=== PATIENT | female | born 1990 | race Caucasian/White ===

== ENCOUNTER 2016-10-01 05:18 | Inpatient (IN) | payer BC ==
[2016-10-01] MEDS ORDERED: Sodium Chloride 0.9% 10 ML Syringe FLUSH PRN (05:34)
[2016-10-01] MEDS ORDERED: ceFAZolin 2 GM in Premix Bag 1 BAG IV ONE (05:34)
[2016-10-01] MEDS ORDERED: Sodium Chloride 0.9% 2.5 ML Syringe FLUSH PRN (05:34)
[2016-10-01] MEDS ORDERED: Citric Acid/Sodium Citrate Solution 30 ML Cup PO SCH (05:45)
[2016-10-01] MEDS: Lactated Ringers 1,000 ML IV SCH ×2 (06:50→07:20)
[2016-10-01] MEDS ORDERED: Propofol 200 MG/20 ML SDV ONE (07:21)
[2016-10-01] MEDS ORDERED: Morphine PF 10 MG/10 ML SDV ONE (07:22)
[2016-10-01] MEDS ORDERED: Ondansetron 4 MG/2 ML SDV ONE (07:23)
[2016-10-01] MEDS ORDERED: ePHEDrine 50 MG/ML SDV ONE (07:23)
[2016-10-01] MEDS ORDERED: Oxytocin 10 Units/1 ML SDV ONE (07:23)
[2016-10-01] MEDS ORDERED: Octyl 2-Cyanoacrylate 1 Tube ONE (08:39)
--- NOTE | 2016-10-01 08:49 | PCM.PREANE ---
Preanesthetic Assessment - Anesthesia/Transfusion/Family Hx Anesthesia History: Prior Anesthesia Without Reaction Family History of Anesthesia Reaction: No Transfusion History: No Prior Transfusion(s) Intubation History: Unknown - Review of Systems General: No Symptoms Pulmonary: No Symptoms Cardiovascular: No Symptoms, Other Gastrointestinal: No Symptoms Neurological: No Symptoms Other: Reports: None - Physical Assessment NPO Status Date: 10/01/16 () Height: 1.73 m Weight: 78.018 kg Mental Status: Alert & Oriented x3 Dentition: Reports: Normal Dentition Thyro-Mental Finger Breadths: 3 Mouth Opening Finger Breadths: 2 ROM/Head Extension: Full Lungs: Clear to Auscultation Cardiovascular: Regular Rate Other: having some pacs in the or pt said she wore a holter monitor 6 years ago - Lab Values: Laboratory Last Values WBC 6.91 K/uL (4.0-11.0) 10/01/16 05:41 RBC 3.80 M/uL (4.30-5.90) L 10/01/16 05:41 Hgb 11.1 g/dL (12.0-16.0) L 10/01/16 05:41 Hct 34.4 % (36.0-46.0) L 10/01/16 05:41 MCV 90.5 fL (80.0-98.0) 10/01/16 05:41 MCH 29.2 pg (27.0-32.0) 10/01/16 05:41 MCHC 32.3 g/dL (31.0-37.0) 10/01/16 05:41 RDW Std Deviation 43.2 fl (28.0-62.0) 10/01/16 05:41 RDW Coeff of Santos 13 % (11.0-15.0) 10/01/16 05:41 Plt Count 188 K/uL (150-400) 10/01/16 05:41 MPV 10.70 fL (7.40-12.00) 10/01/16 05:41 Nucleated RBC % 0.0 /100WBC 10/01/16 05:41 Nucleated RBCs # 0 K/uL 10/01/16 05:41 Blood Type O POSITIVE 10/01/16 05:41 Antibody Screen NEGATIVE 10/01/16 05:41 - Allergies Allergies/Adverse Reactions: Allergies Allergy/AdvReac Type Severity Reaction Status Date / Time No Known Allergies Allergy Verified 06/21/14 14:17 - Anesthesia Plan Pre-Op Medication Ordered: Antacids - Acknowledgements Anesthesia Type Planned: Spinal PreAnesthesia Questionnaire - Past Health History Medical/Surgical History: Denies 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: , 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 - Infectious Disease History Infectious Disease History: Reports: Chicken Pox - Past Surgical History Head Surgeries/Procedures: Reports: None - SUBSTANCE USE Smoking Status *Q: Never Smoker Second Hand Smoke Exposure: No Days Per Week of Alcohol Use: 0 Recreational Drug Use History: No - HOME MEDS Home Medications: Home Meds Iron Tab 1 tab PO DAILY 09/26/16 [History] PNV95/Ferrous Fumarate/FA [ Vitamins Tablet] 1 tab PO DAILY 09/26/16 [ History] - CURRENT (IN HOUSE) MEDS Current Meds: Current Medications Citric Acid/Sodium Citrate (Bicitra Solution) 30 ml PO .ONCE PINEDA Last Admin: 10/01/16 07:54 Dose: 30 ml Lactated Ringer's (Ringers, Lactated) 1,000 mls @ 500 mls/hr IV .BOLUS PINEDA Last Admin: 10/01/16 07:20 Dose: 999 mls/hr Sodium Chloride (Saline Flush) 10 ml FLUSH ASDIRECTED PRN PRN Reason: Keep Vein Open Sodium Chloride (Saline Flush) 2.5 ml FLUSH ASDIRECTED PRN PRN Reason: Keep Vein Open Discontinued Medications Ephedrine Sulfate (Ephedrine Sulfate) Confirm Administered Dose 100 mg .ROUTE .STK-MED ONE Stop: 10/01/16 07:24 Cefazolin Sodium/Dextrose 2 gm (/ Premix) 50 mls @ 100 mls/hr IV ONETIME ONE Stop: 10/01/16 06:03 Morphine Sulfate (Duramorph Pf) Confirm Administered Dose 10 mg .ROUTE .STK-MED ONE Stop: 10/01/16 07:23 Ondansetron HCl (Zofran) Confirm Administered Dose 4 mg .ROUTE .STK-MED ONE Stop: 10/01/16 07:24 Oxytocin (Pitocin) Confirm Administered Dose 20 unit .ROUTE .STK-MED ONE Stop: 10/01/16 07:24 Propofol (Diprivan 20 Ml) Confirm Administered Dose 200 mg .ROUTE .STK-MED ONE Stop: 10/01/16 07:22
[2016-10-01] MEDS ORDERED: diphenhydrAMINE 50 MG/ML SDV IVPUSH PRN ×2 (08:59→09:03)
[2016-10-01] MEDS ORDERED: Acetaminophen/oxyCODONE 325-5 MG Tab PO PRN (08:59)
[2016-10-01] MEDS ORDERED: Naloxone 0.4 MG/ML Syringe IVPUSH PRN (08:59)
[2016-10-01] MEDS ORDERED: Nalbuphine 10 MG/1 ML Vial IVPUSH PRN (08:59)
[2016-10-01] MEDS ORDERED: fentaNYL 100 MCG/2 ML SDV IVPUSH PRN (08:59)
--- NOTE | 2016-10-01 09:00 | PCM.OPNOTE ---
- General Post-Op/Procedure Note Date of Surgery/Procedure: 10/01/16 Operative Procedure(s): primary Findings: normal pelvis, liveborn female 99 weight 3910 grams. Pre Op Diagnosis: 39 weeks footling breech presentation Post-Op Diagnosis: Same Anesthesia Technique: Spinal Primary Surgeon: Rolanda Thompson Secondary Surgeon: Myrtle Quiñones Anesthesia Provider: Harvey Perrin Senior Engineering Technician: Clayton Carranza Pathology: none EBL in mLs: 500 Complications: None known Condition: Good
[2016-10-01] MEDS ORDERED: Ondansetron 4 MG/2 ML SDV IV PRN (09:03)
[2016-10-01] MEDS ORDERED: Lanolin 100% Cream 7 GM Tube TOP PRN (09:03)
[2016-10-01] MEDS ORDERED: Methylergonovine 0.2 MG/1 ML Amp IM PRN (09:03)
[2016-10-01] MEDS ORDERED: Bisacodyl 10 MG Supp RECTAL PRN (09:03)
[2016-10-01] MEDS ORDERED: Lactated Ringers 1,000 ML IV SCH (09:15)
--- NOTE | 2016-10-01 10:28 | PCM.POSTAN ---
POST ANESTHESIA ASSESSMENT - MENTAL STATUS Mental Status: Alert, Oriented Free Text/Narrative:: EKG done to record her arrhythmia. - RESPIRATORY Respiratory Status: respiratory rate WNL, Airway Patent, O2 Saturation Stable - CARDIOVASCULAR CV Status: Pulse Rate WNL, Blood Pressure Stable, Other (persistent sinus arrhythmia; she is not aware of it, no hemodynamic effect) - GASTROINTESTINAL GI Status: No Symptoms - PAIN Pain Score: 3 (spinal receding, pruritis expected, she can use nubain as ordered ) - POST OP HYDRATION Hydration Status: Adequate & Stable - OBSERVATIONS Free Text/Narrative:: Advised to follow up with cycle specialist; surgeon also advised.
--- NOTE | 2016-10-01 10:30 | OR ---
SURGEON: Rolanda Thompson M.D. DATE OF PROCEDURE: 10/01/2016 PREOPERATIVE DIAGNOSIS: A 39-week intrauterine , footling breech presentation. POSTOPERATIVE DIAGNOSIS: A 39-week intrauterine , footling breech presentation. PROCEDURE: Primary low transverse section. BARREL COATER: Dr. Myrtle Quiñones. ANESTHESIA: Spinal. ESTIMATED BLOOD LOSS: 500 mL. FINDINGS: Live born female, score 9 and 9, weighing 3910 g. Normal-appearing uterus, tubes, and ovaries. COMPLICATIONS: None known. DISPOSITION: Stable to recovery, to nursery. BRIEF HISTORY: This is a 25-year-old female. She is G2, P1. She had presented in the clinic at 38+ weeks gestation with noted to be footling breech malpresentation. Due to the footling breech presentation, she preferred not to attempt an external cephalic version and therefore presents for a primary delivery. Breech presentation was confirmed on labor and delivery immediately prior to the surgery. The risks of surgery have been explained including bleeding, infection, injury to bowel, bladder, blood vessels, or other organs, risk of thromboembolic event, and risk of anesthesia. Understanding all of these risks, she does desire to proceed. DESCRIPTION OF PROCEDURE: With the patient in left tilt position, under adequate spinal analgesia, the abdomen was prepped with chlorhexidine and draped in usual fashion for abdominal surgery. SCDs were in place. She had received 2 g of Ancef IV and an appropriate time-out was held. After documentation of adequate analgesia, a transverse curvilinear incision was made 2 cm cephalad from the pubic symphysis and carried through the subcutaneous tissue using electrocautery to the fascia, which was scored transversely and further extended using sharp and blunt dissection. The fascia was elevated from the underlying rectus muscle using sharp and blunt dissection. The rectus muscles were in the midline and a finger was used to enter the peritoneal cavity. There was no adhesions anteriorly, therefore this incision was extended vertically using sharp and blunt dissection. The Anurag O retractor was placed. The visceroperitoneum over the lower uterine segment was incised to develop an adequate bladder flap. A transverse curvilinear incision was made over the lower uterine segment using a scalpel. A finger was used to extend the incision. The amniotic membranes were ruptured. After both of the feet were grasped, the fetus was turned to the sacrum anterior position with fundal pressure. The was delivered to the thorax. The arms were swept across the chest. The head was flexed and the head was delivered without any difficulty. The was bulb suctioned by nose and mouth. The cord was clamped x2 and cut and the was handed to the nurse in attendance at delivery. The was a liveborn female, score 9 and 9, weight is 3910 g. Cord blood was collected for cord ABGs as well as routine cord blood sampling. The placenta was removed by manual extraction. Uterus was cleaned with a dry laparotomy tape. The cervix was opened with a ring forceps. The uterine incision was then closed with a running lock suture of 0 Polysorb followed by an imbricating layer of 0 Polysorb followed by several figure-of- eight sutures for complete hemostasis. The pericolic gutters posterior cul-de- sac were cleaned with a wet laparotomy tape. The uterine incision was carefully inspected and was completely hemostatic. Therefore, the Anurag O retractor was removed. Final inspection was performed and hemostasis continued to be evident. Therefore, the rectus muscle and peritoneum were loosely approximated in midline using a running mattress suture of 0 Polysorb. The posterior aspect of the fascia was inspected and was hemostatic. The fascial incision was closed with a running lock suture of 0 Polysorb and the subcutaneous tissue was irrigated. Any areas of bleeding that were noted were cauterized. The deep subcutaneous tissue was closed with a 3-0 plain and the skin was closed with a subcuticular suture of monofilament suture. Final sponge, needle, and instrument count were reported as correct. There were no known complications. The infant is in nursery in good condition. Mother in recovery in good condition. RITA POOLE /[id number]
[2016-10-01] MEDS: Ketorolac 30 MG/ML SDV IVPUSH SCH ×3 (15:15→21:19)
[2016-10-01] MEDS: Docusate Sodium 100 MG Cap PO SCH (21:20)
[2016-10-02] MEDS: Ketorolac 30 MG/ML SDV IVPUSH SCH ×2 (03:38→10:21)
--- NOTE | 2016-10-02 06:50 | PCM.PNPP ---
- General Info Date of Service: 10/02/16 Functional Status: Reports: Pain Controlled, Tolerating Diet, Ambulating - Review of Systems General: Reports: No Symptoms HEENT: Reports: No Symptoms Pulmonary: Reports: No Symptoms Cardiovascular: Reports: No Symptoms Gastrointestinal: Reports: No Symptoms Genitourinary: Reports: No Symptoms Musculoskeletal: Reports: No Symptoms Skin: Reports: No Symptoms Neurological: Reports: No Symptoms Psychiatric: Reports: No Symptoms - General Info Date of Service: 10/02/16 - Patient Data Vital Signs - Most Recent: Last Vital Signs Temp 36.9 C 10/02/16 04:00 Pulse 58 L 10/02/16 04:00 Resp 15 10/02/16 04:00 BP 90/51 L 10/02/16 04:00 Pulse Ox 98 10/02/16 04:00 Weight - Most Recent: 78.018 kg I&O - Last 24 Hours: Intake & Output 10/01/16 10/01/16 10/02/16 14:59 22:59 06:59 Intake Total 3400 800 980 Output Total 550 550 Balance 2850 250 980 Lab Results - Last 24 Hours: Laboratory Results - last 24 hr 10/01/16 10/02/16 Range/Units 05:41 05:15 Hgb 9.9 L (12.0-16.0) g/dL Hct 30.4 L (36.0-46.0) % Blood Type O POSITIVE Antibody Screen NEGATIVE Med Orders - Current: Current Medications Bisacodyl (Dulcolax) 10 mg RECTAL .ONCE PRN PRN Reason: Constipation Diphenhydramine HCl (Benadryl) 25 - 50 mg IVPUSH Q4H PRN PRN Reason: Itching Stop: 10/02/16 09:01 Diphenhydramine HCl (Benadryl) 25 mg IVPUSH Q6H PRN PRN Reason: Itching or Nausea Docusate Sodium (Colace) 100 mg PO BID PINEDA Last Admin: 10/01/16 21:20 Dose: 100 mg Emollient Ointment (Lansinoh Hpa) 0 gm TOP ASDIRECTED PRN PRN Reason: Sore Nipples Fentanyl (Sublimaze) 50 - 100 mcg IVPUSH Q30M PRN PRN Reason: Breakthrough Pain Stop: 10/02/16 09:00 Lactated Ringer's (Ringers, Lactated) 1,000 mls @ 125 mls/hr IV ASDIRECTED [facility] Last Admin: 10/01/16 15:30 Dose: 125 mls/hr Ibuprofen (Motrin) 800 mg PO Q8H PRN PRN Reason: mild pain or fever Ketorolac Tromethamine (Toradol) 30 mg IVPUSH Q6H PINEDA Stop: 10/02/16 09:16 Last Admin: 10/02/16 03:38 Dose: 30 mg Methylergonovine Maleate (Methergine) 0.2 mg IM .ONCE PRN PRN Reason: Excessive Vaginal Bleeding Nalbuphine HCl (Nubain) 2.5 - 10 mg IVPUSH Q3H PRN PRN Reason: Pruritis Stop: 10/02/16 09:01 Naloxone HCl (Narcan) 0.1 mg IVPUSH ONETIME PRN PRN Reason: Respiratory Depression Stop: 10/02/16 09:02 Ondansetron HCl (Zofran) 4 mg IV Q4H PRN PRN Reason: Nausea/Vomiting Oxycodone/Acetaminophen (Percocet 325-5 Mg) 1 - 2 tab PO ONETIME PRN PRN Reason: Breakthrough Pain Stop: 10/02/16 09:00 Oxycodone/Acetaminophen (Percocet 325-5 Mg) 1 - 2 tab PO Q4H PRN PRN Reason: Pain (moderate 4-6) Discontinued Medications Citric Acid/Sodium Citrate (Bicitra Solution) 30 ml PO .ONCE PINEDA Last Admin: 10/01/16 07:54 Dose: 30 ml Ephedrine Sulfate (Ephedrine Sulfate) Confirm Administered Dose 100 mg .ROUTE .STK-MED ONE Stop: 10/01/16 07:24 Lactated Ringer's (Ringers, Lactated) 1,000 mls @ 500 mls/hr IV .BOLUS [facility] Last Admin: 10/01/16 07:20 Dose: 999 mls/hr Cefazolin Sodium/Dextrose 2 gm (/ Premix) 50 mls @ 100 mls/hr IV ONETIME ONE Stop: 10/01/16 06:03 Morphine Sulfate (Duramorph Pf) Confirm Administered Dose 10 mg .ROUTE .STK-MED ONE Stop: 10/01/16 07:23 Octyl Cyanoacrylate (Dermabond Advance) Confirm Administered Dose 1 applic .ROUTE .STK-MED ONE Stop: 10/01/16 08:40 Ondansetron HCl (Zofran) Confirm Administered Dose 4 mg .ROUTE .STK-MED ONE Stop: 10/01/16 07:24 Oxytocin (Pitocin) Confirm Administered Dose 20 unit .ROUTE .STK-MED ONE Stop: 10/01/16 07:24 Propofol (Diprivan 20 Ml) Confirm Administered Dose 200 mg .ROUTE .STK-MED ONE Stop: 10/01/16 07:22 Sodium Chloride (Saline Flush) 10 ml FLUSH ASDIRECTED PRN PRN Reason: Keep Vein Open Sodium Chloride (Saline Flush) 2.5 ml FLUSH ASDIRECTED PRN PRN Reason: Keep Vein Open - Infant Interaction Disposition, : in Room with Family Interaction: Holding Infant Feeding: Attempted ; Nursed Fair/Poor Support Person: - Recovery Exam Fundal Tone: Firm Fundal Level: At Umbilicus Fundal Placement: Midline Lochia Amount: Scant Lochia Color: Rubra/Red Perineum Description: Intact, Minimal Bruising/Swelling Episiotomy/Laceration: None Bladder Status: Indwelling Catheter in Place Urinary Elimination: Indwelling Catheter - Exam General: Alert, Oriented Neck: Supple Lungs: Clear to Auscultation, Normal Respiratory Effort Cardiovascular: Regular Rate, Regular Rhythm GI/Abdominal Exam: Normal Bowel Sounds, Soft, Non-Tender Extremities: Normal Inspection Skin: Warm, Dry, Intact Wound/Incisions: Dressing Dry and Intact Neurological: No New Focal Deficit Psy/Mental Status: Alert, Normal Affect, Normal Mood - Problem List & Annotations (1) delivery delivered SNOMED Code(s): 131713383 Code(s): O82 - ENCOUNTER FOR DELIVERY WITHOUT INDICATION Status: Acute Current Visit: Yes - Problem List Review Problem List Initiated/Reviewed/Updated: Yes - Assessment Assessment:: POD#1 S/p 1LTCS Doing well OOB ambulating Nursing - Plan Plan:: Increase ambulation Routine postop/ care
[2016-10-02] MEDS: Docusate Sodium 100 MG Cap PO SCH ×2 (10:25→21:31)
[2016-10-02] MEDS: Acetaminophen/oxyCODONE 325-5 MG Tab PO PRN ×2 (15:23→21:31)
--- NOTE | 2016-10-02 15:32 | PCM48HPAN ---
Post Anesthesia Note - EVALUATION WITHIN 48HRS OF ANESTHETIC Vital Signs in Normal Range: Yes Patient Participated in Evaluation: Yes Respiratory Function Stable: Yes Airway Patent: Yes Cardiovascular Function Stable: Yes Hydration Status Stable: Yes Pain Control Satisfactory: Yes Nausea and Vomiting Control Satisfactory: Yes Mental Status Recovered: Yes
[2016-10-02] MEDS: Ibuprofen 800 MG Tab PO PRN (16:35)
[2016-10-03] MEDS: Ibuprofen 800 MG Tab PO PRN ×2 (00:28→09:06)
[2016-10-03] MEDS: Acetaminophen/oxyCODONE 325-5 MG Tab PO PRN (06:48)
--- NOTE | 2016-10-03 08:57 | PCM.PNPP ---
- General Info Date of Service: 10/03/16 Functional Status: Reports: Pain Controlled, Tolerating Diet, Ambulating, Urinating - Review of Systems General: Reports: No Symptoms HEENT: Reports: No Symptoms Pulmonary: Reports: No Symptoms Cardiovascular: Reports: No Symptoms Gastrointestinal: Reports: No Symptoms Genitourinary: Reports: No Symptoms Musculoskeletal: Reports: No Symptoms Skin: Reports: No Symptoms Neurological: Reports: No Symptoms Psychiatric: Reports: No Symptoms - General Info Date of Service: 10/03/16 - Patient Data Vital Signs - Most Recent: Last Vital Signs Temp 36.7 C 10/03/16 04:00 Pulse 63 10/03/16 04:00 Resp 16 10/03/16 04:00 BP 113/56 L 10/03/16 04:00 Pulse Ox 96 10/03/16 04:00 Weight - Most Recent: 78.018 kg Med Orders - Current: Current Medications Bisacodyl (Dulcolax) 10 mg RECTAL .ONCE PRN PRN Reason: Constipation Diphenhydramine HCl (Benadryl) 25 mg IVPUSH Q6H PRN PRN Reason: Itching or Nausea Docusate Sodium (Colace) 100 mg PO BID PINEDA Last Admin: 10/02/16 21:31 Dose: 100 mg Emollient Ointment (Lansinoh Hpa) 0 gm TOP ASDIRECTED PRN PRN Reason: Sore Nipples Lactated Ringer's (Ringers, Lactated) 1,000 mls @ 125 mls/hr IV ASDIRECTED PINEDA Last Admin: 10/01/16 15:30 Dose: 125 mls/hr Ibuprofen (Motrin) 800 mg PO Q8H PRN PRN Reason: mild pain or fever Last Admin: 10/03/16 00:28 Dose: 800 mg Methylergonovine Maleate (Methergine) 0.2 mg IM .ONCE PRN PRN Reason: Excessive Vaginal Bleeding Ondansetron HCl (Zofran) 4 mg IV Q4H PRN PRN Reason: Nausea/Vomiting Oxycodone/Acetaminophen (Percocet 325-5 Mg) 1 - 2 tab PO Q4H PRN PRN Reason: Pain (moderate 4-6) Last Admin: 10/03/16 06:48 Dose: 1 tab Discontinued Medications Citric Acid/Sodium Citrate (Bicitra Solution) 30 ml PO .ONCE PINEDA Last Admin: 10/01/16 07:54 Dose: 30 ml Diphenhydramine HCl (Benadryl) 25 - 50 mg IVPUSH Q4H PRN PRN Reason: Itching Stop: 10/02/16 09:01 Ephedrine Sulfate (Ephedrine Sulfate) Confirm Administered Dose 100 mg .ROUTE .STK-MED ONE Stop: 10/01/16 07:24 Fentanyl (Sublimaze) 50 - 100 mcg IVPUSH Q30M PRN PRN Reason: Breakthrough Pain Stop: 10/02/16 09:00 Lactated Ringer's (Ringers, Lactated) 1,000 mls @ 500 mls/hr IV .BOLUS PINEDA Last Admin: 10/01/16 07:20 Dose: 999 mls/hr Cefazolin Sodium/Dextrose 2 gm (/ Premix) 50 mls @ 100 mls/hr IV ONETIME ONE Stop: 10/01/16 06:03 Ketorolac Tromethamine (Toradol) 30 mg IVPUSH Q6H PINEDA Stop: 10/02/16 09:16 Last Admin: 10/02/16 10:21 Dose: 30 mg Morphine Sulfate (Duramorph Pf) Confirm Administered Dose 10 mg .ROUTE .STK-MED ONE Stop: 10/01/16 07:23 Nalbuphine HCl (Nubain) 2.5 - 10 mg IVPUSH Q3H PRN PRN Reason: Pruritis Stop: 10/02/16 09:01 Naloxone HCl (Narcan) 0.1 mg IVPUSH ONETIME PRN PRN Reason: Respiratory Depression Stop: 10/02/16 09:02 Octyl Cyanoacrylate (Dermabond Advance) Confirm Administered Dose 1 applic .ROUTE .STK-MED ONE Stop: 10/01/16 08:40 Ondansetron HCl (Zofran) Confirm Administered Dose 4 mg .ROUTE .STK-MED ONE Stop: 10/01/16 07:24 Oxycodone/Acetaminophen (Percocet 325-5 Mg) 1 - 2 tab PO ONETIME PRN PRN Reason: Breakthrough Pain Stop: 10/02/16 09:00 Oxytocin (Pitocin) Confirm Administered Dose 20 unit .ROUTE .STK-MED ONE Stop: 10/01/16 07:24 Propofol (Diprivan 20 Ml) Confirm Administered Dose 200 mg .ROUTE .STK-eGood ONE Stop: 10/01/16 07:22 Sodium Chloride (Saline Flush) 10 ml FLUSH ASDIRECTED PRN PRN Reason: Keep Vein Open Sodium Chloride (Saline Flush) 2.5 ml FLUSH ASDIRECTED PRN PRN Reason: Keep Vein Open - Interaction Disposition, : in Room with Family Infant Interaction: Holding Infant Feeding: Attempted ; Nursed Fair/Poor Support Person: - Recovery Exam Fundal Tone: Firm Fundal Level: 1 Fingerbreadths Below Umbilicus Fundal Placement: Midline Lochia Amount: Scant Lochia Color: Rubra/Red Perineum Description: Intact, Minimal Bruising/Swelling Episiotomy/Laceration: None Bladder Status: Voiding Urinary Elimination: Voided - Exam General: Alert, Oriented Neck: Supple Lungs: Clear to Auscultation, Normal Respiratory Effort Cardiovascular: Regular Rate, Regular Rhythm GI/Abdominal Exam: Normal Bowel Sounds, Soft, Non-Tender, No Distention Extremities: Normal Inspection Skin: Warm, Dry, Intact Wound/Incisions: Healing Well Neurological: No New Focal Deficit Psy/Mental Status: Alert, Normal Affect, Normal Mood - Problem List & Annotations (1) delivery delivered SNOMED Code(s): 038249795 Code(s): O82 - ENCOUNTER FOR DELIVERY WITHOUT INDICATION Status: Acute Current Visit: Yes - Problem List Review Problem List Initiated/Reviewed/Updated: Yes - Assessment Assessment:: POD#2 S/p 1LTCS Doing well Desires discharge home - Plan Plan:: Discharge home today with follow up in 2 and 6 weeks Pelvic rest for 6wks Bleeding precautions given Infection precautions given Thrombotic precautions given blues/depression precautions given
[2016-10-03] MEDS: Docusate Sodium 100 MG Cap PO SCH (09:06)
[2016-10-03 09:51] VITALS: BP 107/67
== END 2016-10-03 12:00 | disposition home or self-care (01) | DRG 540 ==
LOC: MW.OB 05:18
PROVIDERS: ADMIT Obstetrics & Gynecology; ATTEND Obstetrics & Gynecology
PROC: 10D00Z1 Extraction of Products of Conception, Low, Open Approach (ICD-10-PCS; principal; 2016-10-01)
DX: O32.8XX0 Maternal care for other malpresentation of fetus, not applicable or unspecified (principal); Z3A.39 39 weeks gestation of pregnancy; Z37.0 Single live birth
CPT/HCPCS: 01961; 36415; 59025; 85014; 85018; 85027; 86850; 86900; 86901; 93005; A9270-GY; J1885; J2270; J2405; J2590; J2704; J7120

== ENCOUNTER 2018-11-25 16:04 | Day surgery (SDC) | payer BC ==
[2018-11-25] MEDS ORDERED: Propofol 200 MG/20 ML SDV ONE (16:17)
[2018-11-25] MEDS ORDERED: fentaNYL 100 MCG/2 ML SDV ONE ×2 (16:18→20:04)
[2018-11-25] MEDS ORDERED: Lidocaine 2% 5 ML SDV ONE (16:18)
[2018-11-25] MEDS ORDERED: Rocuronium 100 MG/10 ML Syringe ONE (16:18)
[2018-11-25] MEDS ORDERED: Midazolam 1 MG/ML 2 ML SDV ONE (16:18)
[2018-11-25] MEDS ORDERED: Metoclopramide 10 MG/2 ML SDV IVPUSH ONE ×2 (16:39→18:05)
--- NOTE | 2018-11-25 16:44 | PCM.PREANE ---
Preanesthetic Assessment - Anesthesia/Transfusion/Family Hx Anesthesia History: No Prior Anesthesia Family History of Anesthesia Reaction: No Transfusion History: No Prior Transfusion(s) Intubation History: Unknown - Review of Systems General: No Symptoms Pulmonary: No Symptoms Cardiovascular: No Symptoms Gastrointestinal: No Symptoms Neurological: No Symptoms Other: Reports: None ( - one previous SAB, current ectopic ) - Physical Assessment NPO Status Date: 11/25/18 NPO Status Time: 13:00 (mac & cheese) Height: 5 ft 8 in Weight: 68.9 kg ASA Class: 2E Mental Status: Alert & Oriented x3 Airway Class: Mallampati = 1 Dentition: Reports: Normal Dentition Thyro-Mental Finger Breadths: 3 ROM/Head Extension: Full Lungs: Clear to Auscultation, Normal Respiratory Effort Cardiovascular: Regular Rate, Regular Rhythm - Allergies Allergies/Adverse Reactions: Allergies Allergy/AdvReac Type Severity Reaction Status Date / Time No Known Allergies Allergy Verified 06/21/14 14:17 - Anesthesia Plan Pre-Op Medication Ordered: Antacids - Acknowledgements Anesthesia Type Planned: General Anesthesia Pt an Appropriate Candidate for the Planned Anesthesia: Yes Alternatives and Risks of Anesthesia Discussed w Pt/Guardian: Yes Pt/Guardian Understands and Agrees with Anesthesia Plan: Yes PreAnesthesia Questionnaire - Past Health History Medical/Surgical History: Denies Medical/Surgical History CONTINUOUS IMPROVEMENT LEAD History: Reports: Ectopic , , Spontaneous - Infectious Disease History Infectious Disease History: Reports: Chicken Pox - Past Surgical History Head Surgeries/Procedures: Reports: None - SUBSTANCE USE Smoking Status *Q: Never Smoker Second Hand Smoke Exposure: No Date of Last Drink: 11/11/18 Recreational Drug Use History: No - HOME MEDS Home Medications: Home Meds Iron Tab 1 tab PO DAILY 09/26/16 [History] PNV95/Ferrous Fumarate/FA [ Vitamins Tablet] 1 tab PO DAILY 09/26/16 [ History] Acetaminophen/oxyCODONE [Percocet 325-5 MG] 1 - 2 tab PO Q4H PRN #40 tablet [Rx] - CURRENT (IN HOUSE) MEDS Current Meds: Current Medications Discontinued Medications Fentanyl (Sublimaze) Confirm Administered Dose 100 mcg .ROUTE .STK-MED ONE Stop: 11/25/18 16:19 Lidocaine (Xylocaine-Mpf 2%) Confirm Administered Dose 5 ml .ROUTE .STK-MED ONE Stop: 11/25/18 16:19 Metoclopramide HCl (Reglan) 10 mg IVPUSH ONETIME ONE Stop: 11/25/18 16:40 Midazolam HCl (Versed 1 Mg/Ml) Confirm Administered Dose 2 mg .ROUTE .STK-MED ONE Stop: 11/25/18 16:19 Propofol (Diprivan 20 Ml) Confirm Administered Dose 200 mg .ROUTE .STK-MED ONE Stop: 11/25/18 16:18 Rocuronium Warren (Zemuron) Confirm Administered Dose 100 mg .ROUTE .STK-MED ONE Stop: 11/25/18 16:19
[2018-11-25] MEDS ORDERED: Citric Acid/Sodium Citrate Solution 30 ML Cup PO ONE ×2 (16:45→18:05)
[2018-11-25] MEDS ORDERED: Sugammadex Sodium 200 MG/2 ML VIAL ONE (16:50)
[2018-11-25] MEDS ORDERED: Vasopressin 20 Units/1 ML MDV ONE (18:32)
[2018-11-25] MEDS ORDERED: Methylene Blue 50 MG/10 ML Ampule ONE (18:32)
[2018-11-25] MEDS ORDERED: Bupivacaine 0.25% 10 ML SDV ONE (18:33)
[2018-11-25] MEDS ORDERED: Dexamethasone 4 MG/ML 5 ML MDV ONE (19:20)
[2018-11-25] MEDS ORDERED: Ondansetron 4 MG/2 ML SDV ONE (19:20)
[2018-11-25] MEDS ORDERED: Octyl 2-Cyanoacrylate 1 Tube ONE (20:10)
[2018-11-25] MEDS ORDERED: Ketorolac 30 MG/ML SDV ONE (20:26)
--- NOTE | 2018-11-25 20:35 | PCM.OPNOTE ---
- General Post-Op/Procedure Note Date of Surgery/Procedure: 11/25/18 Operative Procedure(s): hysteroscopic IUD removal, laparoscopic right salpingectomy Findings: Distal right tube with clot and ectopic approximately 20 ml of hemoperitoneum, uterus retroverted sounds to 9 cm, IUD string directed upward in uterine cavity. Normal left tube and ovary. Pre Op Diagnosis: right tubal ectopic , retained IUD Post-Op Diagnosis: Same Anesthesia Technique: General ET Tube Primary Surgeon: Rolanda Thompson Anesthesia Provider: Doris Kam Pathology: right fallopian tube and clot with products of conception, Kyleena IUD. EBL in mLs: 20 Drain/Tube Comments:: hysteroscopic deficit 45 ml. Complications: None Known Condition: Good Free Text/Narrative:: Intake & Output 11/25/18 11/25/18 11/25/18 06:59 14:59 22:59 Intake Total 0 Balance 0
[2018-11-25] MEDS ORDERED: EPINEPHrine 1:10,000 1 MG/10 ML Syringe IVPUSH PRN (21:09)
[2018-11-25] MEDS ORDERED: Naloxone 0.4 MG/ML Syringe IVPUSH PRN (21:09)
[2018-11-25] MEDS ORDERED: fentaNYL 100 MCG/2 ML SDV IVPUSH PRN (21:09)
[2018-11-25] MEDS ORDERED: Albuterol 0.083% 2.5 MG/3 ML Neb Soln NEB PRN (21:09)
[2018-11-25] MEDS ORDERED: 50% Dextrose in Water 50 ML Syringe IVPUSH PRN (21:09)
[2018-11-25] MEDS ORDERED: Atropine 0.1 MG/ML 10 ML Syringe IVPUSH PRN ×2 (21:09)
--- NOTE | 2018-11-25 21:12 | PCM.POSTAN ---
POST ANESTHESIA ASSESSMENT - MENTAL STATUS Mental Status: Alert, Oriented - VITAL SIGNS Vital Signs: Last Vital Signs Temp 36.4 C 11/25/18 20:52 Pulse 85 11/25/18 21:02 Resp 11 L 11/25/18 21:02 BP 119/80 11/25/18 21:02 Pulse Ox 100 11/25/18 21:02 - RESPIRATORY Respiratory Status: Respiratory Rate WNL, Airway Patent, O2 Saturation Stable - CARDIOVASCULAR CV Status: Pulse Rate WNL, Blood Pressure Stable - GASTROINTESTINAL GI Status: No Symptoms - PAIN Pain Score: 3 - POST OP HYDRATION Hydration Status: Adequate & Stable
--- NOTE | 2018-11-25 22:18 | PCM48HPAN ---
Post Anesthesia Note - EVALUATION WITHIN 48HRS OF ANESTHETIC Vital Signs in Normal Range: Yes Patient Participated in Evaluation: Yes Respiratory Function Stable: Yes Airway Patent: Yes Cardiovascular Function Stable: Yes Hydration Status Stable: Yes Pain Control Satisfactory: Yes Nausea and Vomiting Control Satisfactory: Yes Mental Status Recovered: Yes Vital Signs: Last Vital Signs Temp 36.4 C 11/25/18 20:52 Pulse 67 11/25/18 21:19 Resp 14 11/25/18 21:19 BP 113/74 11/25/18 21:19 Pulse Ox 100 11/25/18 21:19
[2018-11-26 00:33] VITALS: BP 106/63; PULSE 69
--- NOTE | 2018-11-26 11:14 | OR ---
SURGEON: Rolanda Thompson M.D. DATE OF PROCEDURE: 11/25/2018 PREOPERATIVE DIAGNOSES: Right tubal ectopic , retained intrauterine device. POSTOPERATIVE DIAGNOSES: Right tubal ectopic , retained intrauterine device. PROCEDURE: Hysteroscopic intrauterine device removal, laparoscopic right salpingectomy. PRIMARY SURGEON: Rolanda Thompson M.D. ANESTHESIA: General endotracheal. ESTIMATED BLOOD LOSS: 20 mL. HYSTEROSCOPIC DEFICIT: 45 mL of normal saline. FINDINGS: The uterus is sharply retroverted. It is approximately 9 cm when sounding. Upon hysteroscopy, the IUD string was directed upward and completely within the endometrial cavity. Upon laparoscopy, there was approximately 20 mL of hemoperitoneum, a bulging right tube, normal-appearing right ovary, normal- appearing left tube and ovary, normal-appearing uterus with some anterior adhesions related to prior delivery. COMPLICATIONS: None known. DISPOSITION: Stable to Recovery. BRIEF HISTORY: This is a 27-year-old female. She is G4, P2-0-1-2. She has had 2 prior deliveries, 1 prior miscarriage. She had received her Kyleena IUD following her last delivery. She presented with a positive test with an extremely low HCG level. I attempted twice in the office to remove the IUD. We followed HCG levels. They were rising appropriately, and today she came in with more bleeding, and an ultrasound was performed, and it was clear that there was a right tubal ectopic . After discussion on options for treatment, I offered her salpingectomy, which may reduce future fertility, but would completely remove the ectopic versus salpingostomy, which would preserve the tube, that may or may not be functional, but with a 15% risk of persistent ectopic and also recurrent ectopic , versus methotrexate, which is preferred if future fertility is desired, she would like to proceed with a laparoscopic right salpingectomy with hysteroscopic IUD removal. Risks were discussed, including bleeding, infection, injury to bowel, bladder, blood vessels, or other organs, risk of thromboembolic event, risk of anesthesia, risk of hysteroscopy including uterine perforation, fluid overload, and risk of thromboembolism were reviewed. Understanding all these risks, she does desire to proceed. DESCRIPTION OF PROCEDURE: With the patient in the dorsolithotomy position, under adequate general endotracheal anesthesia, the abdomen was prepped with chlorhexidine. The perineum and vagina were prepped with Betadine and draped in usual fashion for laparoscopic surgery. SCDs were in place. The bladder had been drained with a red Nixon catheter, and an appropriate time-out was held. A bimanual examination was performed with the uterus being sharply retroverted. No string visible from the cervix. The speculum was placed into the vagina, and the cervix was grasped with an Allis clamp. I was able to pass a grasping forceps into the endometrial cavity and was unable to retrieve the string. Therefore, rather than proceed with hysteroscopy at this point, I decided to place a ZUMI uterine manipulator to avoid passing fluid through the uterus, which could expel the ectopic from the tube. Therefore, cloth finishing range operator's gloves were changed. Attention was then turned abdominally, where 3 mL of 0.25% Marcaine were injected inferior to the umbilicus. A vertical incision was made with a scalpel. The anterior abdominal wall was elevated. Veress needle was inserted. Opening pressure was 2 mmHg. Hanging drop test confirmed intraperitoneal placement as well. The abdomen was insufflated to develop an adequate pneumoperitoneum of 13 mmHg. A 5 mm port was placed at the umbilicus, and the laparoscope was placed in the abdominal cavity. There was no evidence of any trauma from the port placement site. The uterus was elevated. There was a hemoperitoneum extending into the anterior cul-de-sac approximately 20 to 30 mL. The right tube was grossly dilated. The left tube and ovary appeared normal. Two additional ports were placed 2 cm medial and cephalad from the anterior- superior iliac spine on the right and the left. Under direct visualization, the right lower quadrant port was a 5 mm port, the left lower quadrant port was a 12 mm port to accept the retrieval bag. The uterus was elevated and the pelvis was cleaned. The tube was grasped, and the fimbria of the tube was from the ovary using the LigaSure. It was coagulated and cut, and proceeding proximally along the tube to the cornua, the tube was from the mesosalpinx using the LigaSure and then was transected proximally at the uterus. A clot was expelled from the tip of the tube. Both the tube and the clot were carefully placed into the EndoCatch bag. The specimen was then removed without difficulty. The pelvis was inspected under high and low pressure. There were no areas of bleeding, and therefore the abdomen was completely desufflated. The 12 mm port site deep tissue, including the fascia, was closed with an interrupted [id number] suture of 0 Polysorb. The skin was closed with subcuticular suture of 4-0 Monocryl, followed by Dermabond. The hysteroscope was then prepared. A speculum was again placed in the vagina and the ZUMI uterine manipulator was removed. The cervix was grasped with an Allis clamp. The 6 mm hysteroscope was easily placed into the uterine cavity. There was excellent visualization. I was able to see the tip of the IUD with the eyelet downward and the string curled up towards the crossed T of the IUD. I was able to grab the string and easily remove the IUD with a hysteroscopic grasper. The hysteroscope, speculum, and all the instruments were removed from the vagina. Final sponge, needle, and instrument counts were reported as correct. There were no known complications. The patient was transferred to Recovery in good condition. RITA POOLE /[id number]
== END 2018-11-25 23:50 | disposition home or self-care (01) ==
LOC: MW.SDS 16:04 → MW.MS 16:09 → MW.SDS 23:50
PROVIDERS: ATTEND Obstetrics & Gynecology
DX: O00.101 Right tubal pregnancy without intrauterine pregnancy (principal); Z97.5 Presence of (intrauterine) contraceptive device; Z79.899 Other long term (current) drug therapy
CPT/HCPCS: 36415; 58562; 59151; 85014; 85018; 86850; 86900; 86901; A9270; J0131; J1100; J1885; J2001; J2250; J2405; J2704; J2765; J3010; J3490

== ENCOUNTER 2019-03-12 20:32 | Emergency (ER) | payer BC ==
[2019-03-12 21:26] VITALS: BP 123/70; PULSE 81
--- NOTE | 2019-03-12 22:41 | EDM.PDOC ---
ED HPI GENERAL MEDICAL PROBLEM - General Chief Complaint: Lower Extremity Injury/Pain Stated Complaint: INJURED ANKLE Time Seen by Provider: 03/12/19 21:49 - History of Present Illness INITIAL COMMENTS - FREE TEXT/NARRATIVE: HPI 28-year-old female presents with pain on her right distal Achilles tendon, difficulty walking, and reduced plantarflexion and dorsiflexion after sliding while playing volleyball and experiencing sharp pain in the distal right posterior leg. Notes normal sensation in her right foot. Denies further injuries. ROS with no recent constitutional symptoms. Exam HR 81, RR 18, BP 123/70, T 36.5C, SaO2 100% on room air. Gen: Pleasant, nontoxic-appearing, resting comfortably. HEENT: NC, AT, PEERL, EOMI. Resp: Unlabored respirations with a normal work of breathing. Card: Extremities warm and well perfused. GI: Non-distended. : Deferred MSK: right calf without visible or palpable trauma, muscle compartments soft and non-tender to palpation. Prajapati test with plantar flexion. Tenderness palpation over the Achilles tendon immediately proximal to the insertion of the calcaneus, [id number] ultrasound with equivocal tenderness disruption. No tenderness to palpation over the tibia or fibula. Ankle visually normal without ecchymosis inferior to the lateral malleolus. No tenderness over the posterior lateral malleolus, no tenderness over the posterior medial malleolus. Able to fully dorsiflex, plantarflex, margaret, and invert the ankle with full functional range of motion . Foot visually normal without tenderness to palpation, specifically including the navicular bone and the base of the 5th metatarsal. Able flex and extend all toes. Muscle compartments of the foot are soft. Neurovascular 2+ DP and PT pulses. Sensation grossly intact to touch on the calf. Sensation intact to touch on all toes, first web space, the medial, lateral, plantar and dorsal surfaces of the foot. Unable to stand on left foot on toes. Neuro: alert and oriented 3, no facial asymmetry, vision and hearing WNL. Heme/Lymph: Deferred Skin: Normal color with no visible lesions (other than noted above). Psych: Mood and affect appropriate. MDM Previous chart, nursing note, and vitals reviewed. A: 28-year-old female presents with pain on her right distal Achilles tendon, difficulty walking, and reduced plantarflexion and dorsiflexion after sliding while playing volleyball and experiencing sharp pain in the distal right posterior leg. DDx & Evaluation: CMS intact, no features suggestive of clinically significant ankle or foot injury. Suspect partial Achilles tendon injury. Ankle placed in a splint with 30 of extension, crutches provided, patient to follow up with orthopedics. NSAIDs for pain control. Impression: right ankle pain,? Achilles tendon injury. left ankle Pain Score (Numeric/FACES): 7 - Related Data Allergies Allergy/AdvReac Type Severity Reaction Status Date / Time No Known Allergies Allergy Verified 03/12/19 21:26 Home Meds: Home Meds . [No Known Home Meds] 03/12/19 [History] Past Medical History - Past Health History Medical/Surgical History: Denies Medical/Surgical History [employer] LE[employer]ER History: Reports: Ectopic , , Spontaneous - Infectious Disease History Infectious Disease History: Reports: Chicken Pox - Past Surgical History Head Surgeries/Procedures: Reports: None Female Surgical History: Reports: Section, Other (See Below) Other Female Surgeries/Procedures: Right fallopian tube removed Social & Family History - Family History Family Medical History: Noncontributory Respiratory: Reports: Asthma Oncologic: Reports: Breast, Leukemia, Prostate - Tobacco Use Smoking Status *Q: Never Smoker - Caffeine Use Caffeine Use: Reports: Coffee - Recreational Drug Use Recreational Drug Use: No Review of Systems - Review of Systems Review Of Systems: See Below ED EXAM, GENERAL - Physical Exam Exam: See Below Course - Vital Signs Last Recorded V/S: Last Vital Signs Temp 36.5 C 03/12/19 21:23 Pulse 81 03/12/19 21:23 Resp 18 03/12/19 21:23 BP 123/70 03/12/19 21:23 Pulse Ox 100 03/12/19 21:23 Departure - Departure Time of Disposition: 22:40 Disposition: Home, Self-Care 01 Clinical Impression: Ankle injury - Discharge Information Referrals: PCP,None [Primary Care Provider] - Additional Instructions: You were in seen in the [facility] Emergency Department for evaluation of an injury to your right ankle, your suspected have an injury of your Achilles tendon. Please use ibuprofen and acetaminophen as directed below for pain control. Please use crutches until you have repeat evaluation by an orthopedic physician. Please contact the orthopedic physician listed below to schedule follow-up within 2-5 days. Please read and follow all of the instructions below. Dr. Yimi Colmenares [facility] [address] [facility], [address], [place] [address] Please follow up with your primary care physician as needed. When calling for follow-up care, please make the office aware that this follow-up is from your recent emergency room visit. If for any reason you are refused follow-up, please contact the [facility] Emergency Department at and asked to speak to the emergency department charge nurse. Your care today was limited to identifying and treating emergent medical problems only. Many people have subtle differences in their test results that require follow up with their outpatient physician(s) to correctly determine if this represents a normal variation or concerning abnormality with respect to your specific health. The care given to you today was limited to identifying and treating emergent medical problems - you need to request a copy of all of your medical records from today's visit and follow up with your outpatient physician(s) to review both today's visit and your overall health. If you have any new symptoms or if you are at all concerned about your health please return immediately to the emergency department. Crutch Use Instructions Setting Up the Crutches: Secure the arm pads and hand cotton farmer prior to use. Tighten all hardware ( ie. screws and wing nuts) at least once per week. Clean the crutch tips of shayna and dirt to minimize slipping. Have someone assist you until you master the technique of crutch use. Remove loose rugs and electrical cords from all potential paths to avoid tripping and falling. Replace crutch tips if they should wear out. Be careful on wet indoor surfaces which may be extremely slick. To walk with Crutches: Put your crutches under your arms and press them against your body. Make sure to bear your weight on your hands, not under your arms. Move the crutches ahead of you approximately 12 inches. Push down on the cotton farmer as you step slightly past the crutches, leading with the GOOD LEG. Advance the crutches forward approximately 12 inches; then continue. To get up from a seated position: Hold both crutches on affected side. Slide to the edge of the chair or seat. Push down on the arm of the chair on the good side. Stand up, then put the crutches under your arms. Press the arm pads into the body. To Sit Down: Back up to the chair or seat to within 2-3 inches. Put both crutches in your hand on the affected side, reach backwards for the chair or seat with the other hand. Lower yourself slowly into the chair, bending at the hips. To go upstairs: Start close to the bottom step, and push down with your hands. Step up to the first step, remembering to lead with your GOOD LEG. (Good Leg "UP") Next, step up to the same step with the other foot, making sure to keep the crutches with your affected limb. To go downstairs: Start at the edge of the step, keeping your hips beneath you. Slowly bring the crutches with your affected limb down to the next step. BAD LEG first down the stairs. (Bad Leg "Down") Be sure to bend at the hips and knees to prevent leaning too far forward, which could cause you to fall. If handrail is available, place both crutches in hand on unaffected side with rail on affected side. Advance hand on rail slightly and place crutches on lower stair. Then advance both legs simultaneously to next stair. You make take over the counter Acetaminophen (Tylenol) and Ibuprofen (Motrin or Aleve) as directed below for relief of pain. Take 600 mg of ibuprofen (three 200 mg tablets) with a glass of water every 6-8 hours as needed for pain or fever. Do not take if you have ulcers, GI bleeding, are , or are allergic to ibuprofen. Take 1,000 mg of acetaminophen (two 500 mg tablets) with a glass of water every 6-8 hours as needed for pain. Do not take if you are allergic to acetaminophen. If you have liver disease, please reduce your dose to a maximum of 2,000 mg per day. You can take these medications at the same time or on separate schedules. Do not take for more than 10 days. Do not take with alcohol or other acetaminophen containing medications. This medication may cause a mildly upset stomach, if so take it with a small snack. Stop taking it if you have persistent abdominal pain, heartburn, or any stomach pain. Do not take this medication if you have known ulcers. Please read the warnings at the end of this document regarding these medications. IBUPROFEN WARNING: This drug may infrequently cause serious (rarely fatal) bleeding from the stomach or intestines. Also, related drugs rarely have caused blood clots to form, resulting in heart attacks and strokes. This medication might also rarely cause similar problems. Talk to your doctor or pharmacist about the benefits and risks of treatment, as well as other possible medication choices. If you notice any of the following rare but very serious side effects, stop taking ibuprofen and seek immediate medical attention: black stools, persistent stomach/abdominal pain, vomit that looks like coffee grounds, chest pain, weakness on one side of the body, sudden vision changes, slurred speech. IBUPROFEN SIDE EFFECTS: Upset stomach, nausea, vomiting, heartburn, headache, diarrhea, constipation, drowsiness, and dizziness may occur. If any of these effects persist or worsen, notify your doctor or pharmacist promptly. If your doctor has directed you to use this medication, remember that he or she has judged that the benefit to you is greater than the risk of side effects. Many people using this medication do not have serious side effects. Tell your doctor immediately if any of these serious side effects occur: stomach pain, swelling of the hands or feet, sudden or unexplained weight gain, ringing in the ears ( tinnitus). Tell your doctor immediately if any of these unlikely but serious side effects occur: vision changes, rapid or pounding heartbeat, easy bruising or bleeding, difficult/painful swallowing. Tell your doctor immediately if any of these highly unlikely but very serious side effects occur: change in amount of urine, severe headache, very stiff neck, mental/mood changes, persistent sore throat or fever. This drug may rarely cause serious (possibly fatal) liver disease. If you notice any of the following highly unlikely but very serious side effects, stop taking ibuprofen and consult your doctor or pharmacist immediately: yellowing eyes and skin, dark urine, unusual/extreme tiredness. An allergic reaction to this drug is unlikely, but seek immediate medical attention if it occurs. Symptoms of an allergic reaction include: rash, itching/ swelling (especially of the face/tongue/throat), severe dizziness, trouble breathing. This is not a complete list of possible side effects. ACETAMINOPHEN SIDE EFFECTS: This drug usually has no side effects. If you do not have liver problems, the maximum dose of acetaminophen for adults is 4 grams per day (4000 milligrams). Taking more than the maximum daily amount may cause serious (possibly fatal) liver damage. Get medical help right away if you have any of the following symptoms of liver damage: persistent nausea/vomiting, extreme tiredness, stomach/abdominal pain, yellowing eyes/skin, dark urine. If you have liver problems, consult your doctor or pharmacist for a safe dosage of this medication. A very serious allergic reaction to this drug is rare. However , get medical help right away if you notice any symptoms of a serious allergic reaction, including: rash, itching/swelling (especially of the face/tongue/ throat), severe dizziness, trouble breathing. This is not a complete list of possible side effects. If you notice other effects not listed above, contact your doctor or pharmacist. DRUG INTERACTIONS: Your healthcare professionals (e.g., doctor or pharmacist) may already be aware of any possible drug interactions and may be monitoring you for it. Do not start, stop or change the dosage of any medicine before checking with them first. This drug should not be used with the following medications because very serious interactions may occur: cidofovir, ketorolac. If you are currently using any of these medications listed above, tell your doctor or pharmacist before starting ibuprofen. Before using this medication, tell your doctor or pharmacist of all prescription and nonprescription/herbal products you may use, especially of: anti-platelet drugs (e.g., cilostazol, clopidogrel), oral bisphosphonates (e.g., alendronate), other medications for arthritis (e.g., aspirin, methotrexate), "blood thinners" (e.g., enoxaparin, heparin, warfarin), corticosteroids (e.g., prednisone), cyclosporine, desmopressin, high blood pressure drugs (including ROSEANNA inhibitors such as captopril, angiotensin II receptor antagonists such as losartan, and beta- blockers such as metoprolol), lithium, pemetrexed, "water pills" (diuretics such as furosemide, hydrochlorothiazide, triamterene). Check all prescription and nonprescription medicine labels carefully for other pain/fever drugs ( NSAIDs such as aspirin, celecoxib, naproxen). These drugs are similar to ibuprofen, so taking one of these drugs while also taking ibuprofen may increase your risk of side effects. Consult your doctor or pharmacist for more details. However, if your doctor has prescribed low doses of aspirin to prevent heart attack or stroke (usually at dosages of 81-325 milligrams a day), you should continue to take the aspirin. Daily use of ibuprofen may decrease aspirin 's ability to prevent heart attack/stroke. Talk to your doctor about using a different medication (e.g., acetaminophen) to treat pain/fever. If you must take ibuprofen, talk to your doctor about possibly taking immediate-release aspirin (not enteric-coated) while also taking the ibuprofen dose apart from your aspirin dose. Do not increase your daily dose of aspirin or change the way you take aspirin/other medications without your doctor's approval. This document does not contain all possible interactions. Therefore, before using this product, tell your doctor or pharmacist of all the products you use. Keep a list of all your medications with you, and share the list with your doctor and pharmacist. Prescriptions: If you are uninsured or have financial difficulties with filling your prescription(s), you may consider using a free pharmacy discount service such as [employer] (MtoV) or [employer] (OBOOK). These services allow you to search for a medication on your phone (or computer) and obtain a coupon that usually has a significant discount from the list grey at a pharmacy. Your physician as well as [facility] does not have a financial relationship with either of these services. You may also wish to speak with your physician to determine if lower cost prescriptions are possible. Obtaining primary care: 1. [facility] provides pediatrics (children), family medicine (children, adults, and some obstetrical care), and internal medicine (adults). Further specialty care is also available. Same day appointments are available. They may be contacted at [phone] and are open Friday through Friday 8 AM to 5 PM. The [facility] are located at [facility], [facility] [address] [place], [place] [address]. 2. [facility] offers family medicine, internal medicine, womens health, and further specialty care. [facility] may be contacted at [phone]. [facility] is located at [address] [place], [address]. 3. If you have health insurance, please also contact your insurer for a list of accepting providers under your policy, you may contact these providers for further health care. Occupational health: Work related injuries may consider following up with [facility], . Occupational health services are located at [address] [place] [address] and are open Friday through Friday from 7: 30 am to 5:00 pm. Obstetrical and Gynecological Care: [facility], , Friday through Friday 8 AM to 5 PM. [address], [place] [address]. Eyecare: If you have an eye injury you should follow up with your program coordinator for residence life or with [facility], at [phone] or [phone] , they are located at [address] [place] [address]. Dental Care Konstantin Vazquez DDS. [address] [place], [place]. Ph. [phone] Royal Vazquez DDS MS. [address] [facility] [address], [place], [place]. Ph. [phone] Luis Gramajo DDS. [address] [place] [address]. Ph. [phone] Salvador Putnam DDS. [address] [facility] 4 [place], [place]. Ph. [phone] Jose Park DDS PC. [address] [facility] [address] [place], [place]. Ph. Cody Ferguson DDS. [address] [facility]. Ph. [phone] [facility]. [address] [place], [place]. Ph. [phone] [facility]. [address] [place] [address], [place], [place]. Ph. [phone] [facility] [address] [place] [address]. Ph. [facility]. [address] [place] [address] [address] ARTI Jenkins. Ph. [facility]. [address] [place] [place]. Ph. [phone] Sepsis Event Note - Evaluation Sepsis Screening Result: No Definite Risk - Focused Exam Vital Signs: Vital Signs Temp Pulse Resp BP Pulse Ox 03/12/19 21:23 36.5 C 81 18 123/70 100 Date Exam was Performed: 03/12/19 Time Exam was Performed: 22:36
== END 2019-03-12 23:00 | disposition home or self-care (01) ==
LOC: MW.ED 20:32
DX: S99.911A Unspecified injury of right ankle, initial encounter (principal); X50.9XXA Other and unspecified overexertion or strenuous movements or postures, initial encounter; Y93.68 Activity, volleyball (beach) (court)
CPT/HCPCS: 29515; 99283; 99283-25

== ENCOUNTER 2019-12-01 20:24 | Inpatient (IN) | payer BC ==
[2019-12-01] MEDS ORDERED: Sodium Chloride 0.9% 10 ML Syringe FLUSH PRN (20:52)
[2019-12-01] MEDS ORDERED: Water For Irrigation,Sterile 1,000 ML Container IRR PRN (20:52)
[2019-12-01] MEDS ORDERED: Sodium Chloride 0.9% 10 ML SDV IV PRN (20:52)
[2019-12-01] MEDS ORDERED: Sodium Chloride 0.9% 2.5 ML Syringe FLUSH PRN (20:52)
[2019-12-01] MEDS ORDERED: Butorphanol 1 MG/ML SDV IVPUSH PRN (20:52)
[2019-12-01] MEDS ORDERED: Misoprostol 200 MCG Tab PO PRN (20:52)
[2019-12-01] MEDS ORDERED: Carboprost Tromethamine 250 MCG/1 ML Amp IM PRN (20:52)
[2019-12-01] MEDS ORDERED: Methylergonovine 0.2 MG/1 ML Amp IM PRN (20:52)
[2019-12-01] MEDS ORDERED: Nalbuphine 10 MG/1 ML Vial IVPUSH PRN (20:52)
[2019-12-01] MEDS ORDERED: Tranexamic Acid 1,000 MG in Sodium Chloride 0.9% 100 ML IV PRN (20:52)
[2019-12-01] MEDS ORDERED: Lidocaine 1% 50 ML MDV INJECT PRN (20:52)
[2019-12-01] MEDS ORDERED: Oxytocin/0.9 % Sodium Chloride 30 UNIT/500 ML BAG IV SCH (21:00)
[2019-12-01] MEDS ORDERED: Ropivacaine HCl/PF 100 ML ONE (21:17)
--- NOTE | 2019-12-01 21:26 | PCM.PREANE ---
Preanesthetic Assessment - Anesthesia/Transfusion/Family Hx Anesthesia History: No Prior Anesthesia Transfusion History: No Prior Transfusion(s) Intubation History: Unknown - Review of Systems General: No Symptoms Pulmonary: No Symptoms Cardiovascular: No Symptoms Gastrointestinal: No Symptoms Neurological: No Symptoms Other: Reports: None - Physical Assessment Height: 1.7 m Weight: 82.554 kg ASA Class: 2 ROM/Head Extension: Full Lungs: Clear to Auscultation, Normal Respiratory Effort Cardiovascular: Regular Rate, Regular Rhythm - Allergies Allergies/Adverse Reactions: Allergies Allergy/AdvReac Type Severity Reaction Status Date / Time No Known Allergies Allergy Verified 03/12/19 21:26 - Acknowledgements Anesthesia Type Planned: Epidural PreAnesthesia Questionnaire - Past Health History Medical/Surgical History: Denies 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 [No Known Home Meds] 03/12/19 [History] - CURRENT (IN HOUSE) MEDS Current Meds: Current Medications Butorphanol Tartrate (Stadol) 1 mg IVPUSH Q1H PRN PRN Reason: Pain Carboprost Tromethamine (Hemabate Ds) 250 mcg IM ASDIRECTED PRN PRN Reason: Post Hemorrhage Oxytocin/Sodium Chloride (Oxytocin 30 Unit/500 Ml-Ns) 30 unit in 500 mls @ 500 mls/hr IV TITRATE [facility] Tranexamic Acid 1,000 mg/ (Sodium Chloride) 110 mls @ 660 mls/hr IV ONETIME PRN PRN Reason: Bleeding Lactated Ringer's (Ringers, Lactated) 1,000 mls @ 150 mls/hr IV ASDIRECTED [facility] Lidocaine HCl (Xylocaine 1%) 50 ml INJECT ONETIME PRN PRN Reason: Laceration repair Methylergonovine Maleate (Methergine) 0.2 mg IM ASDIRECTED PRN PRN Reason: Post Hemorrhage Misoprostol (Cytotec) 200 mcg PO ONETIME PRN PRN Reason: Post Hemorrhage Nalbuphine HCl (Nubain) 10 mg IVPUSH Q1H PRN PRN Reason: Pain (severe 7-10) Sodium Chloride (Saline Flush) 10 ml FLUSH ASDIRECTED PRN PRN Reason: Keep Vein Open Sodium Chloride (Saline Flush) 2.5 ml FLUSH ASDIRECTED PRN PRN Reason: Keep Vein Open Sodium Chloride (Normal Saline) 10 ml IV ASDIRECTED PRN PRN Reason: IV Use Sterile Water (Sterile Water For Irrigation) 1,000 ml IRR ASDIRECTED PRN PRN Reason: delivery Discontinued Medications Ropivacaine (Naropin 0.2%) Confirm Administered Dose 100 mls @ as directed .ROUTE .[employer] ONE Stop: 12/01/19 21:18
[2019-12-01] MEDS: Lactated Ringers 1,000 ML IV SCH (23:30)
--- NOTE | 2019-12-01 23:59 | PCM.PREANE ---
Preanesthetic Assessment - Anesthesia/Transfusion/Family Hx Anesthesia History: Prior Anesthesia Without Reaction Transfusion History: No Prior Transfusion(s) Intubation History: Unknown - Review of Systems General: No Symptoms Pulmonary: No Symptoms Cardiovascular: No Symptoms Gastrointestinal: No Symptoms Neurological: No Symptoms Other: Reports: None - Physical Assessment NPO Status Date: 12/01/19 NPO Status Time: 23:58 Height: 1.7 m Weight: 82.554 kg ASA Class: 2 Mental Status: Alert & Oriented x3 Airway Class: Mallampati = 2 Dentition: Reports: Normal Dentition Thyro-Mental Finger Breadths: 3 Mouth Opening Finger Breadths: 3 ROM/Head Extension: Full Lungs: Clear to Auscultation, Normal Respiratory Effort Cardiovascular: Regular Rate, Regular Rhythm - Lab Values: Laboratory Last Values WBC 11.04 K/uL (4.0-11.0) H 12/01/19 21:18 RBC 3.77 M/uL (4.30-5.90) L 12/01/19 21:18 Hgb 11.1 g/dL (12.0-16.0) L 12/01/19 21:18 Hct 34.6 % (36.0-46.0) L 12/01/19 21:18 MCV 91.8 fL (80.0-98.0) 12/01/19 21:18 MCH 29.4 pg (27.0-32.0) 12/01/19 21:18 MCHC 32.1 g/dL (31.0-37.0) 12/01/19 21:18 RDW Std Deviation 45.5 fl (28.0-62.0) 12/01/19 21:18 RDW Coeff of Santos 14 % (11.0-15.0) 12/01/19 21:18 Plt Count 211 K/uL (150-400) 12/01/19 21:18 MPV 11.40 fL (7.40-12.00) 12/01/19 21:18 Nucleated RBC % 0.0 /100WBC 12/01/19 21:18 Nucleated RBCs # 0 K/uL 12/01/19 21:18 SARS-CoV-2 RNA (JENN) NEGATIVE (NEGATIVE) 12/01/19 21:20 Blood Type O POSITIVE 12/01/19 21:18 Antibody Screen NEGATIVE 12/01/19 21:18 - Allergies Allergies/Adverse Reactions: Allergies Allergy/AdvReac Type Severity Reaction Status Date / Time No Known Allergies Allergy Verified 03/12/19 21:26 - Acknowledgements Anesthesia Type Planned: Epidural (Patient understands and accepts anesthetic risks and benefits. All questions answered. Consent signed. 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 Musculoskeletal History: Reports: None Neurological History: Reports: None Psychiatric History: Reports: None Endocrine/Metabolic History: Reports: None Hematologic History: Reports: None Oncologic (Cancer) History: Reports: None Dermatologic History: Reports: None - Infectious Disease History Infectious Disease History: Reports: Chicken Pox - Past Surgical History Head Surgeries/Procedures: Reports: None HEENT Surgical History: Reports: None GI Surgical History: Reports: None Female Surgical History: Reports: Section, Other (See Below) Other Female Surgeries/Procedures: Right fallopian tube removed - History Comment History Comment: etoh "occasional". none while - SUBSTANCE USE Smoking Status *Q: Never Smoker Second Hand Smoke Exposure: No Recreational Drug Use History: No - HOME MEDS Home Medications: Home Meds . [No Known Home Meds] 03/12/19 [History] - CURRENT (IN HOUSE) MEDS Current Meds: Current Medications Butorphanol Tartrate (Stadol) 1 mg IVPUSH Q1H PRN PRN Reason: Pain Carboprost Tromethamine (Hemabate Ds) 250 mcg IM ASDIRECTED PRN PRN Reason: Post Hemorrhage Oxytocin/Sodium Chloride (Oxytocin 30 Unit/500 Ml-Ns) 30 unit in 500 mls @ 500 mls/hr IV TITRATE PINEDA Tranexamic Acid 1,000 mg/ (Sodium Chloride) 110 mls @ 660 mls/hr IV ONETIME PRN PRN Reason: Bleeding Lactated Ringer's (Ringers, Lactated) 1,000 mls @ 150 mls/hr IV ASDIRECTED PINEDA Lidocaine HCl (Xylocaine 1%) 50 ml INJECT ONETIME PRN PRN Reason: Laceration repair Methylergonovine Maleate (Methergine) 0.2 mg IM ASDIRECTED PRN PRN Reason: Post Hemorrhage Misoprostol (Cytotec) 200 mcg PO ONETIME PRN PRN Reason: Post Hemorrhage Nalbuphine HCl (Nubain) 10 mg IVPUSH Q1H PRN PRN Reason: Pain (severe 7-10) Sodium Chloride (Saline Flush) 10 ml FLUSH ASDIRECTED PRN PRN Reason: Keep Vein Open Sodium Chloride (Saline Flush) 2.5 ml FLUSH ASDIRECTED PRN PRN Reason: Keep Vein Open Sodium Chloride (Normal Saline) 10 ml IV ASDIRECTED PRN PRN Reason: IV Use Sterile Water (Sterile Water For Irrigation) 1,000 ml IRR ASDIRECTED PRN PRN Reason: delivery Discontinued Medications Ropivacaine (Naropin 0.2%) Confirm Administered Dose 100 mls @ as directed .ROUTE .[facility] ONE Stop: 12/01/19 21:18
[2019-12-02] MEDS: Lactated Ringers 1,000 ML IV SCH (00:32)
--- NOTE | 2019-12-02 00:58 | PCM.SN.2 ---
- Free Text/Narrative Note: The epidural was done with a sterile technique, back was prepped with chloraprep and draped. 1% lidocaine 5 ml for skin infiltration. 17 gauge touhy with alba with air at 5.5. catheter threaded easily without any paresthesias. aspiration of the catheter was negative for csf and blood. 00:22 test dose with 1.5% lido amara with epi 3ml was negative. 00:25 bolus 2 ml of 1.5% lidocaine with epi. catheter secured with tegaderm and tape. 00:36 0.2% ropivacaine 6 ml bolus given. patient comfortable. patient was able to communicate throughout the entire procedure.
[2019-12-02] MEDS ORDERED: Oxytocin/0.9 % Sodium Chloride 30 UNIT/500 ML BAG ONE (00:59)
[2019-12-02] MEDS ORDERED: Acetaminophen 500 MG Tab PO PRN (01:27)
[2019-12-02] MEDS ORDERED: oxyCODONE 5 MG Tab PO PRN (01:27)
[2019-12-02] MEDS ORDERED: Ibuprofen 800 MG Tab PO PRN (01:27)
[2019-12-02] MEDS ORDERED: Lanolin 100% Cream 7 GM Tube TOP PRN (01:27)
[2019-12-02] MEDS ORDERED: Witch Hazel Medicated Pads 40/Jar TOP PRN (01:27)
[2019-12-02] MEDS ORDERED: Bisacodyl 10 MG Supp RECTAL PRN (01:27)
[2019-12-02] MEDS ORDERED: Benzocaine/Menthol 20%-0.5% Spray 78 GM Cannister TOP PRN (01:27)
--- NOTE | 2019-12-02 01:30 | PCM.DEL ---
L & D Note - General Info Date of Service: 12/02/19 Mother's Due Date: 11/28/19 - Delivery Note Labor: Spontaneous Delivery Outcome: Livebirth Infant Delivery Method: Spontaneous Vaginal Delivery-Single Presentation: Vertex Nuchal Cord: Present, Reduced (after delivery of body) Anesthesia Type: Epidural Amniotic Fluid Description: Clear Episiotomy Type: None Laceration: 1st Degree Suture type: Vicryl Suture size: 3-0 Placenta: Intact, Spontaneous Cord: 3 Vessels Estimated Blood Loss: 300 Resuscitation Needed: No : Bulb Syringe, Stimulated Score 1 min: 8 Score 5 min: 9 - General Info Date of Service: 12/02/19 - Patient Data Weight - Most Recent: 82.554 kg Lab Results Last 24 Hours: Laboratory Results - last 24 hr 12/01/19 12/01/19 12/01/19 Range/Units 21:18 21:18 21:20 WBC 11.04 H (4.0-11.0) K/uL RBC 3.77 L (4.30-5.90) M/uL Hgb 11.1 L (12.0-16.0) g/dL Hct 34.6 L (36.0-46.0) % MCV 91.8 (80.0-98.0) fL MCH 29.4 (27.0-32.0) pg MCHC 32.1 (31.0-37.0) g/dL RDW Std Deviation 45.5 (28.0-62.0) fl RDW Coeff of Santos 14 (11.0-15.0) % Plt Count 211 (150-400) K/uL MPV 11.40 (7.40-12.00) fL Nucleated RBC % 0.0 /100WBC Nucleated RBCs # 0 K/uL SARS-CoV-2 RNA (JENN) NEGATIVE (NEGATIVE) Blood Type O POSITIVE Antibody Screen NEGATIVE Med Orders - Current: Current Medications Acetaminophen (Tylenol Extra Strength) 1,000 mg PO Q6H PRN PRN Reason: Pain Benzocaine/Menthol (Dermoplast Pain Relief 20%-0.5% [place]) 78 gm TOP ASDIRECTED PRN PRN Reason: Perineal Comfort Measure Bisacodyl (Dulcolax) 10 mg RECTAL ONETIME PRN PRN Reason: Constipation Butorphanol Tartrate (Stadol) 1 mg IVPUSH Q1H PRN PRN Reason: Pain Carboprost Tromethamine (Hemabate Ds) 250 mcg IM ASDIRECTED PRN PRN Reason: Post Hemorrhage Docusate Sodium (Colace) 100 mg PO BID PRN PRN Reason: Constipation Emollient Ointment (Lansinoh Hpa) 0 gm TOP ASDIRECTED PRN PRN Reason: Sore Nipples Oxytocin/Sodium Chloride (Oxytocin 30 Unit/500 Ml-Ns) 30 unit in 500 mls @ 500 mls/hr IV TITRATE [facility] Last Admin: 12/02/19 01:07 Dose: 500 mls/hr Documented by: Tranexamic Acid 1,000 mg/ (Sodium Chloride) 110 mls @ 660 mls/hr IV ONETIME PRN PRN Reason: Bleeding Lactated Ringer's (Ringers, Lactated) 1,000 mls @ 150 mls/hr IV ASDIRECTED [facility] Last Admin: 12/02/19 00:32 Dose: 500 mls/hr Documented by: Ibuprofen (Motrin) 800 mg PO Q8H PRN PRN Reason: Pain Lidocaine HCl (Xylocaine 1%) 50 ml INJECT ONETIME PRN PRN Reason: Laceration repair Methylergonovine Maleate (Methergine) 0.2 mg IM ASDIRECTED PRN PRN Reason: Post Hemorrhage Misoprostol (Cytotec) 200 mcg PO ONETIME PRN PRN Reason: Post Hemorrhage Nalbuphine HCl (Nubain) 10 mg IVPUSH Q1H PRN PRN Reason: Pain (severe 7-10) Oxycodone HCl (Oxycodone) 5 mg PO Q2H PRN PRN Reason: Pain Sodium Chloride (Saline Flush) 10 ml FLUSH ASDIRECTED PRN PRN Reason: Keep Vein Open Sodium Chloride (Saline Flush) 2.5 ml FLUSH ASDIRECTED PRN PRN Reason: Keep Vein Open Sodium Chloride (Normal Saline) 10 ml IV ASDIRECTED PRN PRN Reason: IV Use Sterile Water (Sterile Water For Irrigation) 1,000 ml IRR ASDIRECTED PRN PRN Reason: delivery Witch Clara (Tucks) 1 pad TOP ASDIRECTED PRN PRN Reason: comfort care Discontinued Medications Ropivacaine (Naropin 0.2%) Confirm Administered Dose 100 mls @ as directed .ROUTE .STK-MED ONE Stop: 12/01/19 21:18 Oxytocin/Sodium Chloride (Oxytocin 30 Unit/500 Ml-Ns) Confirm Administered Dose 30 unit in 500 mls @ as directed .ROUTE .STK-MED ONE Stop: 12/02/19 01:00 - Problem List & Annotations (1) , delivered SNOMED Code(s): 770084944 Code(s): O34.219 - MATERNAL CARE FOR UNSP TYPE SCAR FROM PREVIOUS DEL Status: Acute Current Visit: Yes - Problem List Review Problem List Initiated/Reviewed/Updated: Yes - My Orders Last 24 Hours: My Active Orders 12/01/19 20:52 Patient Status [ADT] Routine Heart Tones [RC] CONTINUOUS Non Stress Test [RC] PER UNIT ROUTINE May Shower [RC] ASDIRECTED Notify Provider [RC] PRN Up ad Rody [RC] ASDIRECTED Vaginal Exam [RC] PRN Vital Signs [RC] PER UNIT ROUTINE Butorphanol [Stadol] 1 mg IVPUSH Q1H PRN Carboprost Tromethamine [Hemabate DS] 250 mcg IM ASDIRECTED PRN Lidocaine 1% [Xylocaine 1%] 50 ml INJECT ONETIME PRN Methylergonovine [Methergine] 0.2 mg IM ASDIRECTED PRN Nalbuphine [Nubain] 10 mg IVPUSH Q1H PRN Sodium Chloride 0.9% [Normal Saline] 10 ml IV ASDIRECTED PRN Sodium Chloride 0.9% [Saline Flush] 10 ml FLUSH ASDIRECTED PRN Sodium Chloride 0.9% [Saline Flush] 2.5 ml FLUSH ASDIRECTED PRN Tranexamic Acid [Cyklokapron] 1,000 mg Sodium Chloride 0.9% [Normal Saline] 100 ml IV ONETIME Water For Irrigation,Sterile [Sterile Water for Irrigation] 1,000 ml IRR ASDIRECTED PRN miSOPROStoL [Cytotec] 200 mcg PO ONETIME PRN Scalp Electrode [WOMSER] Per Unit Routine Peripheral IV Insertion Adult [OM.PC] Routine Resuscitation Status Routine 12/01/19 21:00 Lactated Ringers [Ringers, Lactated] 1,000 ml IV ASDIRECTED Oxytocin/0.9 % Sodium Chloride [Oxytocin 30 Unit/500 ML-NS] 30 unit in 500 ml IV TITRATE 12/01/19 21:18 RPR (SYPHILIS SERO) W/ RFLX [REF] Routine 12/02/19 01:27 Patient Status [ADT] Routine Cooling Warming Measures [RC] ASDIRECTED May Shower [RC] ASDIRECTED Notify Provider Vital Signs [RC] ASDIRECTED Up ad Rody [RC] ASDIRECTED Vital Signs [RC] PER UNIT ROUTINE Acetaminophen [Tylenol Extra Strength] 1,000 mg PO Q6H PRN Benzocaine/Menthol [Dermoplast Pain Relief 20%-0.5% [place]] 78 gm TOP ASDIRECTED PRN Docusate Sodium [Colace] 100 mg PO BID PRN Ibuprofen [Motrin] 800 mg PO Q8H PRN Lanolin [Lansinoh HPA] See Dose Instructions TOP ASDIRECTED PRN bisacodyL [Dulcolax] 10 mg RECTAL ONETIME PRN oxyCODONE 5 mg PO Q2H PRN witch Clara [Tucks] 1 pad TOP ASDIRECTED PRN Assess Lochia [WOMSER] Per Unit Routine Assess Uterine Involution [WOMSER] Per Unit Routine Breast Pump [WOMSER] Per Unit Routine Ice Therapy [OM.PC] Per Unit Routine Perineal Care [OM.PC] Per Unit Routine Peripheral IV Discontinue [OM.PC] Routine Sitz Bath [OM.PC] Per Unit Routine 12/02/19 Breakfast Regular Diet [DIET] 12/03/19 05:11 HEMOGLOBIN/HEMATOCRIT,HH [HEME] Timed - Assessment Assessment:: 28yo s/p at 40w4d - Plan Plan:: Admit to unit for routine care.
--- NOTE | 2019-12-02 03:31 | OR ---
SURGEON: Susan Colmenares MD DATE OF PROCEDURE: 12/02/2019 PREOPERATIVE DIAGNOSES: 1. A 28-year-old, G5, P2-0-2-2, at 40 weeks and 3 days' gestation. 2. Labor. 3. History of delivery x1. 4. Group B streptococcus negative. POSTOPERATIVE DIAGNOSES: 1. A 28-year-old, G5, P3-0-2-3, status post vaginal after at 40 weeks and 4 days' gestation. 2. Labor. 3. History of delivery x1. 4. Group B streptococcus negative. PROCEDURE: Vaginal after and repair of first-degree perineal laceration. PRIMARY SURGEON: Susan Colmenares MD. ANESTHESIA: Epidural. FINDINGS: Live male infant in cephalic presentation. score of 8 and 9 at one and five minutes respectively. Weight pending. First-degree perineal laceration. Placenta intact with 3-vessel cord. ESTIMATED BLOOD LOSS: 300 mL. INDICATIONS: This is a 28-year-old, G5, P2-0-2-2, who presented at 40 weeks and 3 days' gestation complaining of contractions. Upon presentation, her cervix was found to be 5 cm dilated. She was admitted to Labor and Delivery for trial of labor after . Risks, benefits, and alternatives of trial of labor after were reviewed with the patient and she signed consent. At approximately 6 cm dilated, she underwent artificial rupture of membranes with clear fluid noted. She received an epidural for pain control. She progressed to complete cervical dilation shortly thereafter. I was called to the room. DESCRIPTION OF PROCEDURE: The patient began pushing. Over the next 2.5 contractions, delivered a live male infant. Head was delivered followed by the shoulders and remainder of the body. A nuchal cord x1 was reduced after delivery of the body. Infant was placed on the maternal abdomen. After approximately 60 seconds, the cord was clamped and cut. The placenta then delivered intact via the Albarado-Alford maneuver and with 3-vessel cord. The perineum was inspected and a first-degree perineal laceration was noted. This was repaired to anatomy and hemostasis with 3-0 Vicryl after infiltration with lidocaine for pain control. The fundus was firm below the umbilicus with minimal bleeding. The patient and tolerated the delivery well. [id number] / MODL /[id number] MTDD
--- NOTE | 2019-12-02 09:28 | PCM48HPAN ---
Post Anesthesia Note - EVALUATION WITHIN 48HRS OF ANESTHETIC Vital Signs in Normal Range: Yes Patient Participated in Evaluation: Yes Respiratory Function Stable: Yes Airway Patent: Yes Cardiovascular Function Stable: Yes Hydration Status Stable: Yes Pain Control Satisfactory: Yes Nausea and Vomiting Control Satisfactory: Yes Mental Status Recovered: Yes Vital Signs: Last Vital Signs Temp 36.6 C 12/02/19 08:40 Pulse 69 12/02/19 08:40 Resp 14 12/02/19 08:40 BP 110/59 L 12/02/19 08:40 Pulse Ox 98 12/02/19 08:40
[2019-12-02] MEDS: Docusate Sodium 100 MG Cap PO PRN (11:35)
[2019-12-03 04:49] VITALS: PULSE 67
[2019-12-03] MEDS: Docusate Sodium 100 MG Cap PO PRN (07:29)
[2019-12-03 08:01] VITALS: BP 109/67
--- NOTE | 2019-12-03 08:23 | PCM.PNPP ---
- General Info Date of Service: 12/03/19 Functional Status: Reports: Pain Controlled, Tolerating Diet, Ambulating, Urinating - Review of Systems General: Reports: No Symptoms HEENT: Reports: No Symptoms Pulmonary: Reports: No Symptoms Cardiovascular: Reports: No Symptoms Gastrointestinal: Reports: No Symptoms Genitourinary: Reports: No Symptoms Musculoskeletal: Reports: No Symptoms Skin: Reports: No Symptoms Neurological: Reports: No Symptoms Psychiatric: Reports: No Symptoms - Patient Data Vital Signs - Most Recent: Last Vital Signs Temp 35.8 C L 12/03/19 08:00 Pulse 67 12/03/19 08:00 Resp 13 12/03/19 08:00 BP 109/67 12/03/19 08:00 Pulse Ox 97 12/03/19 08:00 Weight - Most Recent: 82.554 kg Lab Results - Last 24 Hours: Laboratory Results - last 24 hr 12/03/19 Range/Units 05:07 Hgb 10.9 L (12.0-16.0) g/dL Hct 33.8 L (36.0-46.0) % Med Orders - Current: Current Medications Acetaminophen (Tylenol Extra Strength) 1,000 mg PO Q6H PRN PRN Reason: Pain Benzocaine/Menthol (Dermoplast Pain Relief 20%-0.5% [place]) 78 gm TOP ASDIRECTED PRN PRN Reason: Perineal Comfort Measure Last Admin: 12/02/19 03:14 Dose: 1 canister Documented by: Bisacodyl (Dulcolax) 10 mg RECTAL ONETIME PRN PRN Reason: Constipation Butorphanol Tartrate (Stadol) 1 mg IVPUSH Q1H PRN PRN Reason: Pain Carboprost Tromethamine (Hemabate Ds) 250 mcg IM ASDIRECTED PRN PRN Reason: Post Hemorrhage Docusate Sodium (Colace) 100 mg PO BID PRN PRN Reason: Constipation Last Admin: 12/03/19 07:29 Dose: 100 mg Documented by: Emollient Ointment (Lansinoh Hpa) 0 gm TOP ASDIRECTED PRN PRN Reason: Sore Nipples Oxytocin/Sodium Chloride (Oxytocin 30 Unit/500 Ml-Ns) 30 unit in 500 mls @ 500 mls/hr IV TITRATE PINEDA Last Admin: 12/02/19 01:07 Dose: 500 mls/hr Documented by: Tranexamic Acid 1,000 mg/ (Sodium Chloride) 110 mls @ 660 mls/hr IV ONETIME PRN PRN Reason: Bleeding Lactated Ringer's (Ringers, Lactated) 1,000 mls @ 150 mls/hr IV ASDIRECTED PINEDA Last Admin: 12/02/19 00:32 Dose: 500 mls/hr Documented by: Ibuprofen (Motrin) 800 mg PO Q8H PRN PRN Reason: Pain Last Admin: 12/02/19 20:22 Dose: 800 mg Documented by: Lidocaine HCl (Xylocaine 1%) 50 ml INJECT ONETIME PRN PRN Reason: Laceration repair Last Admin: 12/02/19 01:10 Dose: 10 ml Documented by: Methylergonovine Maleate (Methergine) 0.2 mg IM ASDIRECTED PRN PRN Reason: Post Hemorrhage Misoprostol (Cytotec) 200 mcg PO ONETIME PRN PRN Reason: Post Hemorrhage Nalbuphine HCl (Nubain) 10 mg IVPUSH Q1H PRN PRN Reason: Pain (severe 7-10) Oxycodone HCl (Oxycodone) 5 mg PO Q2H PRN PRN Reason: Pain Sodium Chloride (Saline Flush) 10 ml FLUSH ASDIRECTED PRN PRN Reason: Keep Vein Open Sodium Chloride (Saline Flush) 2.5 ml FLUSH ASDIRECTED PRN PRN Reason: Keep Vein Open Sodium Chloride (Normal Saline) 10 ml IV ASDIRECTED PRN PRN Reason: IV Use Sterile Water (Sterile Water For Irrigation) 1,000 ml IRR ASDIRECTED PRN PRN Reason: delivery Witch Clara ([place]) 1 pad TOP ASDIRECTED PRN PRN Reason: comfort care Last Admin: 12/02/19 03:15 Dose: 1 container Documented by: Discontinued Medications Ropivacaine (Naropin 0.2%) Confirm Administered Dose 100 mls @ as directed .ROUTE .[facility] ONE Stop: 12/01/19 21:18 Last Admin: 12/02/19 11:16 Dose: Not Given Documented by: Oxytocin/Sodium Chloride (Oxytocin 30 Unit/500 Ml-Ns) Confirm Administered Dose 30 unit in 500 mls @ as directed .ROUTE .STK-MED ONE Stop: 12/02/19 01:00 Last Admin: 12/02/19 11:16 Dose: Not Given Documented by: - Interaction Disposition, : [place] in Room with Family Interaction: Holding Infant Feeding: Breastfed ; Nursed Well Support Person: - Recovery Exam Fundal Tone: Firm Fundal Level: 1 Fingerbreadths Below Umbilicus Fundal Placement: Midline Lochia Amount: Small Lochia Color: Rubra/Red Bladder Status: Voiding Urinary Elimination: Voided - Exam General: Alert, Oriented Neck: Supple Lungs: Normal Respiratory Effort GI/Abdominal Exam: Soft, Non-Tender Extremities: No Pedal Edema Skin: Warm, Dry, Intact Neurological: No New Focal Deficit Psy/Mental Status: Alert, Normal Affect, Normal Mood - Problem List & Annotations (1) , delivered SNOMED Code(s): 836016407 Code(s): O34.219 - MATERNAL CARE FOR UNSP TYPE SCAR FROM PREVIOUS DEL Status: Acute Current Visit: Yes - Problem List Review Problem List Initiated/Reviewed/Updated: Yes - My Orders Last 24 Hours: My Active Orders 12/03/19 08:21 Ready for Discharge [RC] PER UNIT ROUTINE - Assessment Assessment:: 28yo s/p at 40w4d, PPD#1 - Plan Plan:: Discharge home today if cleared by filing machine operator, being monitored for bili level. Reviewed discharge instructions/precautions.
== END 2019-12-03 15:45 | disposition home or self-care (01) | DRG 560 ==
LOC: MW.OB 20:24 → MW.OBCHECK 20:24 → MW.OB 20:52 → MW.OBCHECK 20:52 → OBSVTOIN 12-02 01:02 → MW.OB 12-02 03:33
PROVIDERS: ADMIT Obstetrics & Gynecology; ATTEND Obstetrics & Gynecology
PROC: 10E0XZZ Delivery of Products of Conception, External Approach (ICD-10-PCS; principal; 2019-12-02)
PROC: 10907ZC Drainage of Amniotic Fluid, Therapeutic from Products of Conception, Via Natural or Artificial Opening (ICD-10-PCS; 2019-12-02)
PROC: 0HQ9XZZ Repair Perineum Skin, External Approach (ICD-10-PCS; 2019-12-02)
PROC: 3E0R3BZ Introduction of Anesthetic Agent into Spinal Canal, Percutaneous Approach (ICD-10-PCS; 2019-12-02)
PROC: 00HU33Z Insertion of Infusion Device into Spinal Canal, Percutaneous Approach (ICD-10-PCS; 2019-12-02)
DX: O34.211 Maternal care for low transverse scar from previous cesarean delivery (principal); Z37.0 Single live birth; Z3A.40 40 weeks gestation of pregnancy; O70.0 First degree perineal laceration during delivery; Z20.828 Contact with and (suspected) exposure to other viral communicable diseases
CPT/HCPCS: 36415; 51701; 59025; 59409; 85014; 85018; 85027; 86592; 86850; 86900; 86901; A9270-GY; J2001; J2590; J7120; U0002